=== PATIENT | female | born 1965 | race Caucasian/White ===

== ENCOUNTER → 2016-06-13 | Outpatient (CLI) | payer OTHER ==
[~2016-06-13] MED LIST: ALBU1AER9 INH; ASMIN/60 INH; ATOR10TA88 PO; BISA10SU5 PO; ESOM20CA PO; FLUT0.0529 NAE; LISI2.5T5 PO; MELA1TAB3 PO; MISCCAP80 PO; MONT1TAB3 PO; ONDA8TAB6 PO; SERT-234 PO; SUMA100T16 PO
--- NOTE | 2016-06-13 09:02 | DIAGNOSTIC IMAGING REPORT ---
CT OF THE CHEST WITHOUT IV CONTRAST CLINICAL HISTORY: Pulmonary nodule. COMPARISON STUDY: Chest CTs August 19, 2013 and December 06, 2015. CT DOSE: 216.30 mGy.cm TECHNIQUE: Axial images of the chest were obtained without IV contrast. Images were reviewed in the axial, sagittal, and coronal planes. IV contrast was not administered for this examination. FINDINGS: No enlarged axillary, mediastinal or hilar lymph nodes are identified. The size of the heart is normal. There is no pericardial effusion. A small focal outpouching of the distal anterior esophagus is unchanged since prior exam. Bilateral breast implants are noted. No pneumothorax or pleural effusion is present. Post surgical deformity of the left chest wall is again noted. Numerous tiny subpleural nodules are unchanged since exam of August 19, 2013, including a 3 mm perifissural nodule within the right middle lobe which is shown on image 163 of 346. No new nodules are present. Linear opacities are suggestive of atelectasis or scarring. The appearance of the upper abdomen is unchanged. The gallbladder is surgically absent. IMPRESSION: 1. No change in several tiny subpleural nodules which measure up to 3 mm. These nodules are considered benign. 2. No acute intrathoracic findings. Electronically signed by: David Clifford M.D. 06/13/2016 9:00 AM Dictated Date/Time: 06/13/2016 8:51 AM
== END | disposition home or self-care (01) ==
LOC: C.CTS 08:20
PROVIDERS: ATTEND Family Medicine
DX: R91.1 Solitary pulmonary nodule (principal)